=== PATIENT | male | born 1955 | race Caucasian/White ===

== ENCOUNTER 2024-07-04 15:28 | Outpatient (CLI) | payer MEDICARE, OTHER, SELFPAY ==
--- NOTE | 2024-07-04 15:34 | XRR_ITS ---
PROCEDURE INFORMATION: Exam: XR Lumbosacral Spine Exam date and time: 07/04/2024 3:38 PM Age: 69 years old Clinical indication: Low back pain; Prior surgery; Surgery date: 6+ months; Surgery type: Multiple back surgeries no hardware, disc surgery x2; Additional info: Lumbar radiculopathy - left TECHNIQUE: Imaging protocol: Radiologic exam of the lumbosacral spine. Views: 2 or 3 views. COMPARISON: MR lumbar spine wo con* [id number] 03/23/2019 7:33 AM FINDINGS: Bones/joints: Vertebral body spurring can be seen at multiple levels along with facet arthropathy. No fracture or subluxation noted. Soft tissues: Unremarkable. XR/XR lumbar spine 2-3V* [id number] IMPRESSION: 1. No acute findings. 2. Multilevel arthritic changes noted
== END 2024-07-04 15:29 | disposition home or self-care (01) ==
LOC: RAD 15:29
PROVIDERS: Family Provider Family Medicine; PCP Family Medicine; Visit Provider Family Medicine
DX: M54.16 Radiculopathy, lumbar region (principal); M47.896 Other spondylosis, lumbar region; M25.78 Osteophyte, vertebrae; Z98.890 Other specified postprocedural states
CPT/HCPCS: 72100

== ENCOUNTER 2024-08-02 06:53 | Outpatient (CLI) | payer MEDICARE, OTHER, SELFPAY ==
--- NOTE | 2024-08-02 07:15 | MR_ITS ---
WS: [id number] MRI LUMBAR SPINE NONCONTRAST HISTORY: Left lumbar radiculopathy COMPARISON: 03/23/2019 TECHNIQUE: Sagittal and axial multisequence imaging is submitted. 2 mm retrolisthesis of L2. New since the prior study. No acute marrow edema. Normal lumbar alignment with no compression fractures or marrow edema. Mild disc space desiccation from L2-3 to L5-S1 with minimal loss of height. Conus terminates normally at Conus tapers and terminates normally at L1. L1-L2: Diffuse annular disc bulging with osteophytic ridging, ligamentum flavum and facet arthritis. Mild effacement of the ventral CSF. Mild disc encroachment upon the traversing L2 nerve roots, simila r to the prior study. Mild subarticular recess and foraminal stenosis. L2-L3: Osteophytic ridging with annular disc bulging and central fissures. Severe ligamentum flavum a nd facet joint arthritis. There is marked facet joint arthritis, greater on the LEFT. Progression of degenerative facet joint disease since the prior study. Severe central, bilateral subarticular recess and foraminal stenosis with encroachment upon the L2 and L3 nerve roots. L3-L4: Deformity of the thecal sac. Postsurgical changes are noted posteriorly probably the result of ligamentum flavum debridement and laminectomies. There is severe bilateral facet joint arthritis wit h diffuse disc bulging. There is disc and osteophyte encroachment upon the L3 and L4 nerve roots. Sev ere central and bilateral subarticular recess and moderate foraminal stenosis. L4-L5: Diffuse annular disc bulging with osteophytic ridging. Central disc protrusion. Suspect small bilateral foraminal disc protrusions RIGHT greater than LEFT. Contact on the traversing L5 nerve root s in the subarticular recesses. Posterior laminectomy defect. Clumping of the nerve roots in the thec al sac. Severe central, bilateral subarticular recess and foraminal stenosis. L5-S1: Mild annular disc bulging with osteophytic ridging. Small central disc protrusion. Posterior l aminectomy defects. Nerve roots are displaced in the thecal sac. Thecal sac is being deformed. There is encroachment upon the L5 and S1 nerve roots bilaterally. Mild progression of central stenosis. Mil d enlargement of the RIGHT S1 nerve root. Moderate central, bilateral subarticular recess and foramin al stenosis. Paravertebral soft tissues are negative. MR/MR lumbar spine wo con* [id number] IMPRESSION: 1. Mild progression of stenoses and degenerative facet joint arthritis through out the lumbar spine since 03/23/2019. Multilevel stenosis due to combination of disc protrusions, disc bulging, facet joint arthritis and osteophytosis. 2. Posterior laminectomy defects are noted from L3-L5. 3. L2-3: Severe central, bilateral subarticular recess and foraminal stenoses. 4. L3-4: Severe central, bilateral subarticular recess and moderate foraminal stenosis. 5. L4-5: Severe central, bilateral subarticular recess and foraminal stenosis. 6. L5-S1: Moderate central with bilateral subarticular recess and foraminal st enosis. 7. L1-2: Mild subarticular recess and foraminal stenosis.
== END 2024-08-02 06:54 | disposition home or self-care (01) ==
LOC: RAD 06:53
PROVIDERS: Family Provider Family Medicine; PCP Family Medicine; Visit Provider Family Medicine
DX: M54.16 Radiculopathy, lumbar region (principal); M48.061 Spinal stenosis, lumbar region without neurogenic claudication; M47.896 Other spondylosis, lumbar region; M25.78 Osteophyte, vertebrae
CPT/HCPCS: 72148